=== PATIENT | female | born 1940 | race Caucasian/White ===

== ENCOUNTER 2018-02-18 10:42 | Inpatient (IN) | payer OTHER, BC ==
[~2018-02-18] VITALS: Ht 170.2 cm; Wt 89.8 kg
[2018-02-18 10:58] VITALS: BP 167/116
--- NOTE | 2018-02-18 11:00 | NUR ---
Pt taken to her room; room 8
--- NOTE | 2018-02-18 11:33 | NUR ---
77 y.o female brought herself to the ED after having a spell where she became "disoriented, fuzzy, with a floaty feeling". Pt states this started 3 year ago and has occured on and off [facility]. Pt states that the dizziness has led to lifestyle changes such as inability to drive very far, being gone from home for very long and being able to certain places. Pt denies feeling vertigo and the room spinning but also states that she "does not feel right". Denies all other s/sx.
[2018-02-18] MEDS ORDERED: NACL 0.9% 1,000 ML IV ONE (11:55)
[2018-02-18] MEDS ORDERED: ASPIRIN 81 MG TAB.CHEW PO ONE (11:55)
[2018-02-18] MEDS ORDERED: DILTIAZEM 25 MG/5 ML VIAL IVP ONE ×2 (12:30→13:45)
[2018-02-18 12:37] LABS: BASOPHILS % (AUTO) 0.4 % (0.0-2.0); EOSINOPHILS # (AUTO) 0.1 K/uL (0-0.4); EOSINOPHILS % (AUTO) 0.6 % (0.0-4.0); HEMATOCRIT 44.2 % (36-48); HEMOGLOBIN 15.6 g/dL (12.0-16.0); LYMPHOCYTES % (AUTO) 11.2 % (20.5-51.1); MEAN CORPUSCULAR HEMOGLOBIN 31 pg (27-31); MEAN CORPUSCULAR HGB CONC 35 g/dL (33-37); MEAN CORPUSCULAR VOLUME 88.2 fL (80-94); MONOCYTES # (AUTO) 0.4 K/uL (0.8-1.0); MONOCYTES % (AUTO) 4.9 % (1.7-9.3); NEUTROPHILS # (AUTO) 7.5 K/uL (1.8-7.7); NEUTROPHILS % (AUTO) 82.9 % (42.2-75.2); PLATELET COUNT (AUTO) 167 K/uL (140-450); RED BLOOD CELL COUNT(AUTO) 5.01 MIL/uL (4.20-5.40); RED CELL DISTRIBUTION WIDTH 13.4 % (11.6-13.7); WHITE BLOOD COUNT (AUTO) 9.1 K/uL (4.8-10.8)
[2018-02-18] MEDS ORDERED: ENOXAPARIN 100 MG/ML SYR SUBQ ONE (12:40)
[2018-02-18 12:49] LABS: ALBUMIN 3.8 g/dL (3.4-5.0); ANION GAP 13.4 (8-16); ASPARTATE AMINOTRANSFERASE 14 U/L (15-37); CARBON DIOXIDE 26.4 mmol/L (21-32); CHLORIDE 99 mmol/L (98-107); CREATININE 1.2 mg/dL (0.6-1.3); GLUCOSE 207 mg/dL (74-106); POTASSIUM 3.8 mmol/L (3.5-5.1); SODIUM SERUM 135 mmol/L (136-145); TOTAL BILIRUBIN 1.3 mg/dL (0.0-1.0); UREA NITROGEN, BLOOD 21 mg/dL (7-18)
--- NOTE | 2018-02-18 12:59 | NUR ---
PT RESTING IN BED; DR. MCCOLLUM AT BEDSIDE.
[2018-02-18 13:00] LABS: PROTHROMBIN TIME 10.8 secs (10.8-13.4)
[2018-02-18] MEDS ORDERED: DILTIAZEM 30 MG TAB PO ONE (13:45)
--- NOTE | 2018-02-18 14:00 | NUR ---
PT RESTING; EDUCATED PT ON DX. SHE SPOKE WITH HER DID DR. MCCOLLUM
[2018-02-18] MEDS ORDERED: KETOROLAC 30 MG/ML VIAL IVP PRN (14:05)
[2018-02-18] MEDS ORDERED: DOCUSATE SODIUM 100 MG GELCAP PO PRN (14:05)
[2018-02-18] MEDS ORDERED: ACETAMINOPHEN 325 MG TAB PO PRN (14:05)
[2018-02-18] MEDS ORDERED: HYDROcodone/APAP 7.5/325 MG 1 TAB PO PRN (14:05)
[2018-02-18] MEDS ORDERED: ONDANSETRON 4 MG/2 ML VIAL IM/IVP PRN (14:05)
[2018-02-18] MEDS: NACL 0.9% 1,000 ML IV SCH (14:28)
[2018-02-18 14:56] LABS: CHOL/HDL RATIO 2.2 (1-4.5); MAGNESIUM 1.7 mg/dL (1.8-2.4); PHOSPHORUS 2.9 mg/dL (2.5-4.9); THYROID STIMULATING HORMONE 1.05 uIU/mL (0.34-3.74)
--- NOTE | 2018-02-18 15:00 | NUR ---
RECEIVED REPORT FROM PM NURSE AT THE BEDSIDE. PT ADMITTING DX NEW ONSET OF A-FIB AND ELEVATED TROPONIN. CC OF DIZZINESS. HAS IV 20G ON RT AC, NS INFUSING AT 60ML/HR. PT DENIES ANY PAIN. SKIN IS INTACT. AOX4, AMBULATORY AND STEADY GAIT. VS NOTED T 97.5, HR 74, BP 132/81, O2 SAT 95% ON RA. PT ON TELEMONITOR. MRSA SWAB DONE. PLACED CALL LIGHT WITHIN PT REACH. NO SIGN OF DISTRESS NOTED. WILL CONTINUE TO MONITOR PT.
--- NOTE | 2018-02-18 15:04 | NUR ---
TRANSFERRED PT TO TELE 112B; EDUCATED PT ON ALL MEDICATION GIVEN. GAVE BEDSIDE REPORT TO RN IN ROOM. PT STATES THAT SHE IS FEELING BETTER.
[2018-02-18] MEDS ORDERED: HEPARIN PER PHARMACY MC PRN (15:25)
[2018-02-18] MEDS ORDERED: NITROGLYCERIN 0.4 MG TAB SL PRN (15:25)
[2018-02-18] MEDS ORDERED: hePARIN / DEXT 5% PREMIX 250 ML IV SCH (15:25)
[2018-02-18 16:00] VITALS: BP 123/68
[2018-02-18 16:29] LABS: APPEARANCE,URINE CLEAR (CLEAR); BILIRUBIN,URINE NEGATIVE (NEGATIVE); BLOOD, URINE NEGATIVE (NEGATIVE); LEUKOCYTE ESTERASE ,URINE NEGATIVE (NEGATIVE); NITRITE, URINE NEGATIVE (NEGATIVE); PH,URINE 6.5 (5.0-9.0); UGLUCOSE TRACE (NEGATIVE)
--- NOTE | 2018-02-18 16:54 | NUR ---
PT INFORMED NOT TO EAT ANYTHING PT IS DUE FOR US FOR ABDOMEN. VERBALISED UNDERSTANDING. WILL CONTINUE TO MONITOR PT.
[2018-02-18 16:58] LABS: COLOR,URINE STRAW (YELLOW)
[2018-02-18] MEDS ORDERED: MAG SULF 2000 MG/WATER PREMIX 50 ML IV SCH (17:00)
[2018-02-18] MEDS: hePARIN / DEXT 5% PREMIX 250 ML IV SCH (18:27)
--- NOTE | 2018-02-18 18:30 | NUR ---
STARTED NEW IV LINE ON RT WRIST , 20 G BY CHARGE NURSE. HEPARIN IV BOLUS 4300 UNITS PER HEPARIN PROTOCOL AND HEPARIN DRIP STARTED 860 UNITS PER HEPARIN PROTOCOL. ADMINISTERED MAGNESIUM TO PT WELL. NEXT PTT TO BE DRAWN AFTER 6HRS, ORDERED FOR 0030 AM ON 02/19/18. NO SIGN OF DISTRESS NOTED ON THIS PT. WILL CONTINUE TO MONITOR PT.
--- NOTE | 2018-02-18 19:20 | NUR ---
RECEIVED BEDSIDE REPORT FROM RN YAMILE, PT IN BED ON RA, NO SIGNS OF ACUTE DISTRESS, RIGHT HAND IV, 22 G INFUSING HEPARIN AT 860 UNITS/HR, LEFT AC IV INFUSING MG AT 25 ML/HR. EXPLAINED PLAN OF CARE, UPDATED BOARD, WILL GIVE DUE MEDICATIONS. CALL LIGHT WITHIN REACH, WILL CONTINUE TO MONITOR.
--- NOTE | 2018-02-18 19:20 | NUR ---
ENDORSED PT TO PM NURSE AT BEDSIDE. PT IN STABLE CONDITION.
[2018-02-18 20:00] VITALS: BP 114/55
[2018-02-18] MEDS: metFORMIN 500 MG TAB PO SCH (20:22)
[2018-02-18] MEDS: TACROLIMUS 0.5 MG CAP PO SCH (20:25)
[2018-02-18] MEDS: MYCOPHENOLATE 250 MG CAP PO SCH (20:25)
[2018-02-18] MEDS: DILTIAZEM 30 MG TAB PO SCH (20:25)
[2018-02-18] MEDS ORDERED: ATORVASTATIN 20 MG TAB PO SCH (21:00)
[2018-02-18] MEDS ORDERED: DILTIAZEM 60 MG TAB PO SCH (21:00)
--- NOTE | 2018-02-18 21:50 | NUR ---
PT ASLEEP IN BED, NO S/S OF ANXIETY AT THIS TIME, CALL LIGHT WITHIN REACH, WILL CONTINUE TO MONITOR PER MD ORDERS. Addendum: 02/19/18 at 0237 by Sarahi Schmitz RN NO S/S OF PAIN NOT ANXIETY.
--- NOTE | 2018-02-18 23:16 | NUR ---
RECEIVED CALL FROM LAB, SPOKE WITH JULIANA, CRITICAL VALUE FOR TROPONIN 0.187. DR SINGH AWARE, NO ORDERS RECEIVED. WILL CONTINUE TO MONITOR.
[2018-02-19] VITALS: BP 123/55
--- NOTE | 2018-02-19 01:44 | NUR ---
CALL FROM LAB, SPOKE WITH JULIANA, CRITICAL VALUE FOR APTT 54.3. NO CHANGE IN HEPARIN PROTOCOL, DR SINGH AWARE, NO NEW ORDERS, WILL PUT IN ORDER FOR APTT TO BE RE-DRAWN 6 HOURS AFTER LAST BLOOD DRAW.
[2018-02-19 04:00] VITALS: BP 151/77
--- NOTE | 2018-02-19 04:15 | NUR ---
PT RESTING IN BED NO SIGNS OF DISTRESS, WILL CONTINUE TO MONITOR.
[2018-02-19] MEDS: DILTIAZEM 30 MG TAB PO SCH ×2 (05:00→12:22)
--- NOTE | 2018-02-19 05:00 | NUR ---
EKG DONE AT BEDSIDE, WILL CONTINUE TO MONITOR.
--- NOTE | 2018-02-19 06:01 | NUR ---
DUE MEDICATION GIVEN, PT TOLERATED WELL, WILL CONTINUE TO MONITOR.
[2018-02-19] MEDS: NACL 0.9% 1,000 ML IV SCH (06:45)
--- NOTE | 2018-02-19 07:24 | NUR ---
ENDORSED PT TO DAY SHIFT NURSE GERRY. PT STABLE.
--- NOTE | 2018-02-19 07:30 | NUR ---
RECEIVED REPORT FROM NETWORK FIELD ENGINEER RN. PT IN STABLE CONDITION. AAO X4. NO COMPLAINTS OF PAIN OR DISCOMFORT AT THIS TIME. SKIN INTACT. LUNGS CTA. LT AC 20G PATENT AND ASYMPTOMATIC, INFUSING IVF. RT HAND 22G PATENT AND ASYMPTOMATIC, INFUSING HEPARIN AT 860 UNITS/HR. ADJUSTED PATIENT POSITIONING IN BED FOR COMFORT. INTRODUCED SELF AND UPDATED BOARD. ALL SAFETY PRECAUTIONS IN PLACE, WILL CONTINUE TO MONITOR. Addendum: 02/19/18 at 0835 by Elisabeth Ingram Meng RN SOME BLEEDING NOTED AT LT AC IV SITE. PER NETWORK FIELD ENGINEER GARY BAHENA MD IS AWARE. WILL CONTINUE TO MONITOR.
--- NOTE | 2018-02-19 07:50 | NUR ---
PATIENT HAS BEEN SCREENED AND CATEGORIZED MODERATE RISK. PATIENT WILL BE SEEN WITHIN 3-5 DAYS OF ADMISSION. 02/21- [address], [facility]
[2018-02-19 08:00] VITALS: BP 163/75
[2018-02-19 08:14] LABS: T4 (THYROXINE) 9.8 ug/dL (4.5-12.0)
--- NOTE | 2018-02-19 08:20 | NUR ---
CALLED [employer] TO REQUEST WEDGE PILLOW FOR PT WHO WOULD LIKE ONE UNDER THE KNEES. HAVE GIVEN PT A REGULAR PILLOW IN THE MEANTIME.
[2018-02-19] MEDS: ASPIRIN 81 MG TAB.CHEW PO SCH (08:44)
[2018-02-19] MEDS: predniSONE 5 MG TAB PO SCH (08:44)
[2018-02-19] MEDS: metFORMIN 500 MG TAB PO SCH ×2 (08:44→16:13)
[2018-02-19] MEDS: MYCOPHENOLATE 250 MG CAP PO SCH ×2 (08:46→21:18)
[2018-02-19] MEDS: TACROLIMUS 0.5 MG CAP PO SCH ×2 (08:46→21:18)
[2018-02-19 08:48] LABS: ANION GAP 8.6 (8-16); CARBON DIOXIDE 28.1 mmol/L (21-32); CHLORIDE 100 mmol/L (98-107); CREATININE 0.9 mg/dL (0.6-1.3); GLUCOSE 107 mg/dL (74-106); POTASSIUM 3.7 mmol/L (3.5-5.1); SODIUM SERUM 133 mmol/L (136-145); UREA NITROGEN, BLOOD 18 mg/dL (7-18)
--- NOTE | 2018-02-19 08:54 | NUR ---
MORNING MEDS ADMINISTERED PER MD ORDERS. PT INQUIRING ABOUT A VERTICAL DEPRESSION IN ONE NAIL AND WHAT IT MAY SUGGEST MEDICALLY. PT ENCOURAGED TO DISCUSS CONCERN WITH DOCTOR WHEN THEY MAKE ROUNDS.
[2018-02-19] MEDS ORDERED: TACROLIMUS 1 MG CAP PO SCH (09:00)
[2018-02-19] MEDS ORDERED: MYCOPHENOLATE 250 MG CAP PO SCH (09:00)
[2018-02-19 09:11] LABS: HEMATOCRIT 40.7 % (36-48); HEMOGLOBIN 14.2 g/dL (12.0-16.0); MEAN CORPUSCULAR VOLUME 91.5 fL (80-94); RED BLOOD CELL COUNT(AUTO) 4.45 MIL/uL (4.20-5.40)
[2018-02-19 09:12] LABS: BASOPHILS % (AUTO) 0.5 % (0.0-2.0); EOSINOPHILS # (AUTO) 0.1 K/uL (0-0.4); EOSINOPHILS % (AUTO) 1.6 % (0.0-4.0); LYMPHOCYTES # (AUTO) 2.3 K/uL (2.5-16.5); LYMPHOCYTES % (AUTO) 32.7 % (20.5-51.1); MEAN CORPUSCULAR HEMOGLOBIN 32 pg (27-31); MEAN CORPUSCULAR HGB CONC 35 g/dL (33-37); MONOCYTES # (AUTO) 0.6 K/uL (0.8-1.0); MONOCYTES % (AUTO) 8.2 % (1.7-9.3); PLATELET COUNT (AUTO) 150 K/uL (140-450); RED CELL DISTRIBUTION WIDTH 12.7 % (11.6-13.7)
--- NOTE | 2018-02-19 09:57 | NUR ---
PER PHARMACY, DO NOT MAKE CHANGES TO CURRENT HEPARIN DRIP FOR MOST RECENT APTT OF 45.9. ORDER ANOTHER APTT DRAW FOR 6 HOURS FROM LAST APPT DRAW.
[2018-02-19 12:00] VITALS: BP 157/70
--- NOTE | 2018-02-19 12:42 | NUR ---
DR. VO AND DR. BALL IN ROOM TO DISCUSS PLAN OF CARE WITH PATIENT. MD ADDRESSED ALL OF PT QUESTIONS AND CONCERNS.
[2018-02-19] MEDS ORDERED: HYDROCHLOROTHIAZIDE 25 MG TAB PO SCH (13:30)
--- NOTE | 2018-02-19 13:55 | NUR ---
APTT RESULT PENDING.
--- NOTE | 2018-02-19 14:50 | NUR ---
MOST RECENT PTT IS 42.9. ADMINISTERED HEPARIN BOLUS DOSE OF 2100 UNITS AND INCREASED HEPARIN INFUSION RATE TO 10 ML/HOUR. WILL CONTINUE TO MONITOR. EDUCATION GIVEN. PT HAS BEEN INSTRUCTED TO REPORT SYMPTOMS OF BLEEDING AND VERBALIZES UNDERSTANDING.
[2018-02-19] MEDS: hePARIN / DEXT 5% PREMIX 250 ML IV SCH (14:52)
[2018-02-19 16:00] VITALS: BP 136/68
--- NOTE | 2018-02-19 16:13 | NUR ---
SCHEDULED MEDICATIONS ADMINISTERED PER MD ORDERS. PT IS SITTING IN BED, SPEAKING WITH FAMILY/FRIEND ON PHONE. NO DISTRESS NOTED. WILL CONTINUE TO MONITOR.
--- NOTE | 2018-02-19 19:25 | NUR ---
ENDORSED PLAN OF CARE TO LOGISTICS ASSOCIATE RN. PT IN STABLE CONDITION.
--- NOTE | 2018-02-19 19:25 | NUR ---
RECEIVED BEDSIDE REPORT FROM DAY SHIFT RN GERRY, PT AWAKE, ALERT, ABLE TO MAKE NEEDS KNOWN, ON RA, NO SIGNS OF ACUTE DISTRESS. IV IN RIGHT HAND 22 G, SL, DRESSING INTACT. EXPLAINED PLAN OF CARE UPDATED BOARD, V/S TAKEN ALL WITHIN PTS BASELINE, EXPLAINED DUE MEDICATIONS. PT REQUEST SLEEPING AID D/T REPORTED DIFFICULTY SLEEPING WHILE IN HOSPITAL, WILL SPEAK WITH DR REGARDING PTS INSOMNIA. CALL LIGHT WITHIN REACH, WILL CONTINUE TO MONITOR.
[2018-02-19 20:00] VITALS: BP 150/78
[2018-02-19] MEDS ORDERED: ZOLPIDEM 5 MG TAB PO PRN (20:55)
[2018-02-19] MEDS ORDERED: METOPROLOL SUCCINATE 50 MG TABER PO SCH (21:00)
--- NOTE | 2018-02-19 21:17 | NUR ---
SPOKE WITH DR MONETS REGARDING PTS ANXIETY, ORDER FOR AVIS SHI FOR INSOMNIA, WILL FOLLOW WITH MD SORIANO. Addendum: 02/19/18 at 2338 by Sarahi Schmitz RN INSOMNIA NOT ANXIETY
[2018-02-19] MEDS: APIXABAN 2.5 MG TAB PO SCH (21:26)
--- NOTE | 2018-02-19 23:30 | NUR ---
PT ASLEEP IN BED, NO SIGNS OF DISTRESS, WILL CONTINUE TO MONITOR.
[2018-02-20] VITALS: BP 143/65
--- NOTE | 2018-02-20 02:00 | NUR ---
PT IN BED ASLEEP NO SIGNS OF DISTRESS, BED IN LOWEST POSITION WILL CONTINUE TO MONITOR.
[2018-02-20 04:00] VITALS: BP 150/70
--- NOTE | 2018-02-20 04:00 | NUR ---
PT ASLEEP IN BED, V/S TAKEN ALL WITHIN BASELINE WILL CONTINUE TO MONITOR.
--- NOTE | 2018-02-20 05:25 | NUR ---
PT AMBULATED TO RESTROOM, STEADY GAIT, NO BM REPORTED, WILL CONTINUE TO MONITOR.
--- NOTE | 2018-02-20 07:15 | NUR ---
ENDORSED PT TO DAY SHIFT NURSE PT STABLE.
[2018-02-20 07:24] LABS: BASOPHILS % (AUTO) 0.7 % (0.0-2.0); EOSINOPHILS # (AUTO) 0.1 K/uL (0-0.4); EOSINOPHILS % (AUTO) 1.3 % (0.0-4.0); HEMATOCRIT 41.7 % (36-48); HEMOGLOBIN 14.6 g/dL (12.0-16.0); LYMPHOCYTES # (AUTO) 1.7 K/uL (2.5-16.5); LYMPHOCYTES % (AUTO) 25.9 % (20.5-51.1); MEAN CORPUSCULAR HEMOGLOBIN 31 pg (27-31); MEAN CORPUSCULAR HGB CONC 35 g/dL (33-37); MEAN CORPUSCULAR VOLUME 87.1 fL (80-94); MONOCYTES # (AUTO) 0.6 K/uL (0.8-1.0); MONOCYTES % (AUTO) 9.5 % (1.7-9.3); NEUTROPHILS # (AUTO) 4.2 K/uL (1.8-7.7); NEUTROPHILS % (AUTO) 62.6 % (42.2-75.2); PLATELET COUNT (AUTO) 149 K/uL (140-450); RED BLOOD CELL COUNT(AUTO) 4.79 MIL/uL (4.20-5.40); RED CELL DISTRIBUTION WIDTH 13.5 % (11.6-13.7); WHITE BLOOD COUNT (AUTO) 6.7 K/uL (4.8-10.8)
--- NOTE | 2018-02-20 07:28 | NUR ---
RECEIVED REPORT FROM FIELD REIMBURSEMENT MANAGER RN. PT IN STABLE CONDITION. SLEEPING IN BED, AROUSABLE BY VOICE. NO COMPLAINTS OF PAIN OR DISCOMFORT. SKIN INTACT. LUNGS CTA. IV SITE PATENT AND ASYMPTOMATIC. ALL SAFETY PRECAUTIONS IN PLACE, WILL CONTINUE TO MONITOR.
[2018-02-20 08:00] VITALS: BP 156/75
[2018-02-20 08:03] LABS: ANION GAP 11.3 (8-16); CARBON DIOXIDE 26.9 mmol/L (21-32); CHLORIDE 99 mmol/L (98-107); POTASSIUM 3.2 mmol/L (3.5-5.1); SODIUM SERUM 134 mmol/L (136-145)
[2018-02-20 08:04] LABS: CREATININE 0.8 mg/dL (0.6-1.3); GLUCOSE 100 mg/dL (74-106); UREA NITROGEN, BLOOD 17 mg/dL (7-18)
[2018-02-20] MEDS: MYCOPHENOLATE 250 MG CAP PO SCH (08:34)
[2018-02-20] MEDS: TACROLIMUS 0.5 MG CAP PO SCH (08:34)
[2018-02-20] MEDS: ASPIRIN 81 MG TAB.CHEW PO SCH (08:35)
[2018-02-20] MEDS: metFORMIN 500 MG TAB PO SCH (08:35)
[2018-02-20] MEDS: APIXABAN 2.5 MG TAB PO SCH (08:40)
[2018-02-20] MEDS: predniSONE 5 MG TAB PO SCH (08:44)
[2018-02-20] MEDS ORDERED: HYDROCHLOROTHIAZIDE 25 MG TAB PO SCH (09:00)
[2018-02-20] MEDS ORDERED: APIXABAN 2.5 MG TAB PO SCH (09:00)
[2018-02-20] MEDS ORDERED: METOPROLOL SUCCINATE 50 MG TABER PO SCH (09:30)
--- NOTE | 2018-02-20 09:34 | NUR ---
SCHEDULED MEDS ADMINISTERED AT THIS TIME PER MD ORDERS. PT DENIES PAIN AND DISCOMFORT. WILL CONTINUE TO MONITOR.
[2018-02-20] MEDS ORDERED: HYDR-3293 PO (10:44)
[2018-02-20] MEDS ORDERED: METF500T PO (10:44)
[2018-02-20] MEDS ORDERED: METO50TE2 PO (10:44)
[2018-02-20] MEDS ORDERED: APIX2.5 PO (10:44)
--- NOTE | 2018-02-20 11:13 | NUR ---
MD IN ROOM TO TALK TO PT. PATIENT WILL BE DISCHARGED TODAY. WILL CONTINUE TO MONITOR.
--- NOTE | 2018-02-20 12:53 | NUR ---
WALKED WITH PT TWICE AROUND [facility]. DENIES PAIN, DIZZINESS, AND DISCOMFORT. GAIT EVEN AND STEADY, WITHOUT ASSIST. MD AWARE.
[2018-02-20] MEDS ORDERED: POTASSIUM CHLORIDE 10 MEQ TABER PO SCH (13:00)
--- NOTE | 2018-02-20 14:40 | NUR ---
ALL DISCHARGE PAPERWORK, INCLUDING INSTRUCTIONS TO FOLLOW UP WITH PCP AND NEW PRESCRIPTIONS, GIVEN TO PATIENT. MEDICATION RECONCILIATION TEACHING GIVEN. PT VERBALIZED COMPLETE UNDERSTANDING OF ALL DISCHARGE TEACHING. ID BANDS REMOVED. IV SITES REMOVED WITH MINIMAL BLOOD LOSS AND LUMEN COMPLETELY INTACT. ALL PERSONAL BELONGINGS ARE WITH PATIENT. PT LEFT UNIT AT 1440.
== END 2018-02-20 14:40 | disposition home or self-care (01) | DRG 308 ==
LOC: MED 10:42 → MTU 14:05
PROVIDERS: ADMIT Family Medicine; ATTEND Family Medicine
DX: I48.92 Unspecified atrial flutter (principal); I50.41 Acute combined systolic (congestive) and diastolic (congestive) heart failure; E87.1 Hypo-osmolality and hyponatremia; Z94.4 Liver transplant status; E80.6 Other disorders of bilirubin metabolism; E11.65 Type 2 diabetes mellitus with hyperglycemia; R79.89 Other specified abnormal findings of blood chemistry; E87.6 Hypokalemia; E66.9 Obesity, unspecified; Z68.31 Body mass index [BMI] 31.0-31.9, adult; I11.0 Hypertensive heart disease with heart failure
CPT/HCPCS: 36415; 71045; 76700; 80048; 80053; 81003; 82948; 83036; 83690; 83735; 83880; 84100; 84436; 84443; 84479; 84484; 85025; 85379; 85610; 85730; 87081; 93005; 96372; 96374; 96376; 99285; J1644; J1650; J3475; J3490; J7030; J7507; J7512; J7517; Q0092